=== PATIENT | female | born 1955 | race Caucasian/White ===

== ENCOUNTER 2016-06-23 06:19 | Observation (INO) | payer OTHER ==
[~2016-06-23] VITALS: Ht 167.6 cm; Wt 106.7 kg
[~2016-06-23 06:19] MED LIST: ASPI81CH CHEW; LEVO137T2 PO; LISI40TA PO; LORA10TA PO; SIMV10TA PO
[2016-06-23] MEDS ORDERED: ACETAMINOPHEN 1000 MG/100 ML VIAL IV ONE (07:25)
[2016-06-23] MEDS ORDERED: SODIUM CHLORID 0.9% 500 ML IV SCH (07:30)
[2016-06-23] MEDS ORDERED: CHLORHEXIDINE GLUCONATE 2 % 1 PACK (2 CLOTHS) TOP SCH (07:30)
[2016-06-23] MEDS ORDERED: POVIDONE IODINE 5% (ANTISEPSIS KIT) 4 APPLICATIONS EACH NARE SCH (07:30)
[2016-06-23] MEDS ORDERED: INSULIN HUMAN REGULAR 1,000 UNITS/10 ML VIAL SQ PRN (07:30)
[2016-06-23] MEDS ORDERED: LACTATED RINGER'S 1000 ML IV SCH (07:30)
[2016-06-23] MEDS ORDERED: METOPROLOL TARTRATE 25 MG TAB PO PRN (07:30)
[2016-06-23 08:03] VITALS: BP 134/77; PULSE 98; RESP 18; TEMP 97.7; O2SAT 99
[2016-06-23] MEDS ORDERED: BUPIVACAINE HCL PF 0.5% 30 ML VIAL ONE (10:12)
[2016-06-23] MEDS ORDERED: fentaNYL CITRATE 250 MCG/5 ML AMP ONE (10:14)
[2016-06-23] MEDS ORDERED: MIDAZOLAM HCL 2 MG/2 ML VIAL ONE (10:14)
[2016-06-23] MEDS ORDERED: HYDROmorphone HCL PF 2 MG/ML VIAL ONE (10:15)
[2016-06-23] MEDS ORDERED: DO NOT ADM ANY ANTICOAGULANT DRUGS XX PRN (14:30)
[2016-06-23] MEDS ORDERED: *morphine SULFATE 8 MG/ML PERIprocedure ONLY ONE ×2 (15:00→15:30)
[2016-06-23] MEDS ORDERED: NEOSTIGMINE 3 MG/3 ML SYR IV ONE (15:18)
[2016-06-23] MEDS ORDERED: ONDANSETRON HCL 4 MG/2 ML VIAL IV PUSH ONE (15:18)
[2016-06-23] MEDS ORDERED: PROPOFOL 200 MG/20 ML AMP IV ONE (15:18)
[2016-06-23] MEDS ORDERED: LACTATED RINGER'S 1000 ML INJ 1,000 ML IV ONE (15:18)
[2016-06-23] MEDS ORDERED: ePHEDrine/NS 25 MG/5 ML SYR IV ONE (15:18)
[2016-06-23] MEDS ORDERED: KETOROLAC TROMETHAMINE 30 MG/ML (IVP) VIAL ONE (15:33)
--- NOTE | 2016-06-23 15:50 | PD.OP ---
cc: Christ Ruiz MD; Betsy Gomez MD Operative Report Date of Surgery: Jun 23, 2016 Preoperative Diagnosis: Carcinoma of the left breast Postoperative Diagnosis: Carcinoma the left breast Procedure: Left modified radical mastectomy and right simple mastectomy Anesthesia: Gen. endotracheal Surgeon: Christ Ruiz Crane Man(s): Jennifer Flores, MS 3 Operation and Findings: Operative procedure: The patient was brought to the operating room and placed under satisfactory general endotracheal anesthesia. The entire chest was prepped and draped in usual sterile fashion. The right side was approached first and elliptical skin incision was made around the nipple and areola carried out sharply through the subcutaneous tissue with cautery being used for hemostasis. An upper flap was developed using the cautery down to the chest wall and 1 cm inferior to the clavicle. An inferior skin incision was made and similar flap was developed inferiorly. The breast was taken off the chest wall in a medial to lateral fashion to the anterior border latissimus dorsi. The axillary tail of [place] was included in the dissection but no lymph node bearing area was deliberately taken. Hemostasis was strictly assured and the specimen sent for permanent pathology labeled right breast. A single 10 mm Donnie drain was placed through separate stab incision laterally and then secured care to the skin with 3-0 nylon. It was located anterior to the pectoralis fashion. After check for hemostasis which was seen to be satisfactory, the subcutaneous tissue was closed with interrupted 3-0 Vicryl sutures and skin closed with a running 4-0 PDS subcuticular stitches. Attention was turned to the left side. Again an elliptical skin incision was made, this time somewhat differently in that the previous infra-axillary incision was incorporated in the incision and it was thus necessarily made much more laterally and superiorly in the axilla and the right side. After creating the upper flap using the cautery and inferior skin incision flap were developed in similar fashion. The breast was taken off the chest wall along with the pectoralis fascia in a medial to lateral fashion using the cautery. The dissection was carried over to the anterior border latissimus dorsi which was identified and then followed superiorly into the axilla. The axilla proper was entered by incising the clavipectoral fascia. The left axillary vein was identified and the tissue inferior to was dissected inferiorly with vessels being taken down between hemoclips and divided. The dissection was carried posteriorly to the subscapularis muscle. The thoracodorsal and long thoracic nerves were both identified and preserved. After bringing x-ray contents down and completely freeing them, the entire specimen was sent in toto as left modified radical mastectomy. Hemostasis was strictly assured. 2 #10 Donnie drains were placed through separate stab incisions and both secured to the skin with 3-0 nylon. One was placed in the axilla and the other way anterior to the pectoralis major. Subcutaneous tissues tissue was closed with interrupted 3-0 Vicryl suture. Skin was then closed with a running 4-0 PDS subcuticular stitch. It was necessary to extend the incision and I mother ellipse inferior in the axilla to control a large dogear due to a large amount of extra tissue in the area. This was closed in similar fashion. The incisions on both sides were then secured with stitches. Sterile dressings were placed and the patient was then awakened taken from the operating room in satisfactory condition, having tolerated procedure without problem. Estimated blood loss was less than 50 mL's. The instrument, sponge, and needle counts were reported as being correct 2 at the end of procedure. Christ Ruiz MD Jun 23, 2016 15:50
[2016-06-23] MEDS ORDERED: KETOROLAC TROMETHAMINE 30 MG/ML (IVP) VIAL IV PUSH ONE ×2 (16:00→19:00)
[2016-06-23 17:41] VITALS: BP 106/61; PULSE 92; RESP 18; TEMP 96.7; O2SAT 97
[2016-06-23] MEDS ORDERED: ONDANSETRON HCL 4 MG/2 ML VIAL IV PRN (19:00)
[2016-06-23] MEDS ORDERED: KETOROLAC TROMETHAMINE 60 MG/2 ML (IM) VIAL IM ONE (19:00)
[2016-06-23] MEDS ORDERED: MORPHINE SULFATE 4 MG/ML INJ IV PRN ×2 (19:00)
[2016-06-23] MEDS ORDERED: SODIUM CHLORIDE 0.9% FLUSH 5 ML FLUSH IV FLUSH PRN (19:00)
[2016-06-23] MEDS ORDERED: oxyCODONE/ACETAMINOPHEN 5 MG/325 MG TAB PO PRN ×2 (19:00)
[2016-06-23 20:00] VITALS: BP 114/63; PULSE 91; RESP 20; TEMP 98; O2SAT 96
[2016-06-23] MEDS ORDERED: ZOLPIDEM TARTRATE 10 MG TAB PO PRN (20:15)
[2016-06-23 21:15] VITALS: O2SAT 97
[2016-06-23] MEDS ORDERED: METOCLOPRAMIDE HCL 10 MG/2 ML VIAL IV PRN (21:15)
[2016-06-23] MEDS: KETOROLAC TROMETHAMINE 10 MG TAB PO SCH (22:06)
[2016-06-23] MEDS: SODIUM CHLORIDE 0.9% FLUSH 5 ML FLUSH IV FLUSH SCH (22:07)
[2016-06-24] VITALS: BP 95/54; PULSE 74; RESP 21; TEMP 96.1; O2SAT 97
[2016-06-24] MEDS: KETOROLAC TROMETHAMINE 10 MG TAB PO SCH ×3 (03:56→16:37)
[2016-06-24 04:00] VITALS: BP 95/50; PULSE 92; RESP 20; TEMP 97.4; O2SAT 95
[2016-06-24 08:00] VITALS: BP 94/39; PULSE 80; RESP 12; TEMP 96.6; O2SAT 95
[2016-06-24] MEDS: SODIUM CHLORIDE 0.9% FLUSH 5 ML FLUSH IV FLUSH SCH (09:28)
[2016-06-24] MEDS ORDERED: INFLUENZA VIRUS VACCINE (QUADRIVALENT) 0.5 ML SYR IM ONE (10:00)
[2016-06-24 10:29] VITALS: O2SAT 96
[2016-06-24 12:00] VITALS: BP 110/44; PULSE 79; RESP 15; TEMP 96.5; O2SAT 98
[2016-06-24 16:00] VITALS: BP 118/71; PULSE 99; RESP 16; TEMP 95.7; O2SAT 97
--- NOTE | 2016-06-24 16:17 | HHI.PR ---
Subjective Subjective Notes Painful, but better; nausea, but only with meds. Objective Vitals/I&O Vital Signs Date Time Temp Pulse Resp B/P Pulse Ox O2 Delivery O2 Flow Rate FiO2 06/24/16 12:00 96.5 79 15 110/44 98 06/24/16 10:29 21 06/23/16 21:15 Nasal Cannula 06/23/16 17:00 2 Cardiovascular: Regular Lungs: Clear Abdomen: Non-distended, Non-tender, BS normal Wound Wound : Wound Location: Chest Drainage: Clear Dressing: Dry A/P Assessment and Plan S/P bilateral mastectomy; doing well D/C to home; return to office next week; care for SILVINO drains as directed. Christ Ruiz MD Jun 24, 2016 16:17
[2016-06-24] MEDS ORDERED: NORC5TAB PO (16:23)
== END 2016-06-24 17:01 | disposition home or self-care (01) ==
LOC: HSDC 06:19 → N07A 17:38
PROVIDERS: ADMIT Surgery; ATTEND Surgery
DX: C50.912 Malignant neoplasm of unspecified site of left female breast (principal); C77.3 Secondary and unspecified malignant neoplasm of axilla and upper limb lymph nodes; N60.11 Diffuse cystic mastopathy of right breast; E89.0 Postprocedural hypothyroidism; Z88.0 Allergy status to penicillin; Z91.048 Other nonmedicinal substance allergy status; Z79.82 Long term (current) use of aspirin
CPT/HCPCS: 88307; 88309; 88361; 90686; G0378; J0131; J1170; J1885; J2250; J2270; J2405; J2710; J3010; J7120; Q2038

== ENCOUNTER → 2016-07-24 | Day surgery (SDC) | payer OTHER ==
[~2016-07-24] MED LIST changes: +ACETAMINOPHEN 1000 MG/100 ML VIAL IV ONE; +KETOROLAC TROMETHAMINE 30 MG/ML (IVP) VIAL ONE; +LACTATED RINGER'S 1000 ML INJ 1,000 ML ONE; +LIDOCAINE 1%/EPINEPHrine 1:100,000 SOLN 20 ML VIAL ONE; +MIDAZOLAM HCL 2 MG/2 ML VIAL ONE; +NORC5TAB PO; +PROPOFOL 200 MG/20 ML AMP IV ONE
--- NOTE | 2016-07-27 10:58 | MP ---
cc: CHRIST CHA DATE OF SURGERY: 07/24/2016. PREOPERATIVE DIAGNOSIS: Necrotic tissue right chest wall status post right mastectomy. POSTOPERATIVE DIAGNOSIS: Necrotic tissue right chest wall status post right mastectomy. OPERATIVE PROCEDURE PERFORMED: Debridement of right chest wall and placement of negative pressure wound treatment device. SURGEON: Christ Cha MD. BUSINESS BROKER: Fidel Blanton MS III ANESTHESIA: General: DESCRIPTION OF OPERATIVE FINDINGS AND PROCEDURE: The patient was brought to the operating room and after satisfactory general anesthesia was obtained, the chest was prepped and draped in the usual sterile fashion with Hibiclens. The wound was seen to the previously debrided as noted in the office. The remainder of the necrotic tissue was debrided sharply down to bleeding tissue. Hemostasis was assured with the cautery. There were two angles on the lateral side which were partially closed with interrupted 4-0 PDS sutures. The remainder of the wound was then irrigated and hemostasis checked for and found to be satisfactory. The negative pressure sponge was placed into the wound after cutting into the appropriate shape. It was then covered with the adhesive and the vacuum engaged with good compression of the sponge. The patient was then awakened and taken from the operating room in satisfactory condition, having tolerated procedure well. Estimated blood loss was less than 5 mL. The instruments, sponge, and needle counts reported being correct x2 at the end of procedure. MD CAESAR ZamanB/JAK /2:01 PM /10:52 AM
== END | disposition home or self-care (01) ==
LOC: ESDC 10:15
PROVIDERS: ATTEND Surgery
DX: T81.89XA Other complications of procedures, not elsewhere classified, initial encounter (principal); S21.001A Unspecified open wound of right breast, initial encounter; Z90.11 Acquired absence of right breast and nipple
CPT/HCPCS: 00400; 11000; J0131; J1885; J2250; J3010; J7120